=== PATIENT | male | born 1950 | race Caucasian/White ===

== ENCOUNTER 2021-11-15 16:03 | Inpatient (IN) | payer OTHER, MEDICAID, SELFPAY ==
[~2021-11-15] VITALS: Ht 185.4 cm; Wt 118.4 kg
[~2021-11-15 16:03] MED LIST: ALBU2.5V7 INH; ASCO500T20 PO; DOCU-156 PO; EPOE40007 SUBCUT; FURO-150 PO; INSU100V9 SUBCUT; IPRA0.2S53 INH; KEPI500 IV; LEVE1000 PO; LIP40 PO; Lactulose GT; MERO500V23 IV; METF-518 PO; MIDO5TAB4 GT; MULT-976 PO; MULT400T13 GT; ONDA4VIA52 IVP; PROI40 IVP; RISP2TAB5 PO; SAW/1TAB2 PO; VITD2000 PO
[2021-11-15 16:17] VITALS: BP_SYST 130
[2021-11-15] MEDS ORDERED: NUT.237L67 GT (16:29)
[2021-11-15] MEDS ORDERED: OMEP-268 GT (16:29)
[2021-11-15] MEDS ORDERED: RISP2TAB86 GT (16:29)
[2021-11-15] MEDS ORDERED: INSU100V9 SQ (16:29)
[2021-11-15] MEDS ORDERED: LEVE1000 GT (16:29)
[2021-11-15] MEDS ORDERED: MIDO10TA GT (16:29)
[2021-11-15] MEDS ORDERED: ATOR40TA68 GT (16:29)
[2021-11-15] MEDS ORDERED: CHOL2000 GT (16:29)
[2021-11-15] MEDS ORDERED: HEPA500015 SQ (16:29)
[2021-11-15 16:55] LABS: EOSINOPHILS # (AUTO) 0.4 K/uL (0.0-0.4); EOSINOPHILS % (AUTO) 5.8 % (0.0-4.0); HEMATOCRIT 23.7 % (36-54); RED BLOOD CELL COUNT(AUTO) 2.57 MIL/uL (4.2-6.2)
[2021-11-15 17:00] LABS: BASOPHILS % (AUTO) 0.6 % (0.0-2.0); LYMPHOCYTES # (AUTO) 0.8 K/uL (1.0-5.5); MEAN CORPUSCULAR HEMOGLOBIN 30 pg (27-31); MEAN CORPUSCULAR HGB CONC 33 % (32-36); MEAN CORPUSCULAR VOLUME 92 fL (79.0-98.0); MONOCYTES # (AUTO) 0.9 K/uL (0.0-1.0); MONOCYTES % (AUTO) 13.2 % (1.7-9.3); NEUTROPHILS # (AUTO) 4.6 K/uL (1.8-7.7); NEUTROPHILS % (AUTO) 68.4 % (40.0-70.0); PLATELET COUNT (AUTO) 161 K/uL (130-430); RED CELL DISTRIBUTION WIDTH 17.1 % (9.0-15.0); WHITE BLOOD COUNT (AUTO) 6.8 K/uL (4.8-10.8)
[2021-11-15 17:01] LABS: HEMOGLOBIN 7.8 g/dL (14.0-18.0)
[2021-11-15 17:19] LABS: POTASSIUM 2.4 mmol/L (3.5-5.1)
[2021-11-15 17:20] LABS: CALCIUM 9.3 mg/dL (8.4-11.0); CREATININE 1.31 mg/dL (0.55-1.30); TOTAL BILIRUBIN 0.3 mg/dL (0.0-1.0)
[2021-11-15 17:21] LABS: ALBUMIN 1.7 g/dL (3.4-4.8)
[2021-11-15 20:10] VITALS: BP_SYST 129
[2021-11-16 00:30] VITALS: BP_SYST 102
[2021-11-16] MEDS ORDERED: POTASSIUM CHLORIDE 20 MEQ/PKT PACKET GT ONE (01:30)
[2021-11-16] MEDS: IPRATROPIUM BROM 0.5 MG/2.5 ML VIAL.NEB (ATROVENT) INH SCH ×6 (03:44→23:23)
[2021-11-16] MEDS: ALBUTEROL SULFATE 0.083% 2.5 MG/3 ML VIAL.NEB INH SCH ×6 (03:44→23:23)
[2021-11-16] MEDS: INSULIN REGULAR, HUMAN 100 UNITS/ML, 10 ML VIAL (humuLIN R) SUBCUT PRN ×3 (06:29→16:58)
[2021-11-16] MEDS ORDERED: D5W 1,000 ML IV PRN (07:30)
[2021-11-16] MEDS ORDERED: DEXTROSE 50%-WATER 50 ML DISP.SYRIN IVP PRN (07:30)
[2021-11-16] MEDS ORDERED: GLUCOSE (DEXTROSE) ORAL GEL -Adults PO PRN (07:30)
[2021-11-16 08:15] VITALS: BP_SYST 100
[2021-11-16] MEDS: DOCUSATE SODIUM 100 MG CAPSULE PO SCH (09:00)
[2021-11-16] MEDS: LACTULOSE 20 GM/30 ML UDC GT SCH ×3 (09:00→21:57)
[2021-11-16] MEDS: MIDODRINE HCL 5 MG TABLET (PROAMATINE) GT SCH ×3 (09:32→21:57)
[2021-11-16] MEDS: CHOLECALCIFEROL (VITAMIN D3) 2,000 UNIT TABLET PO SCH (09:32)
[2021-11-16] MEDS: MULTIVITAMINS TAB 1 TABLET PO SCH (09:32)
[2021-11-16] MEDS: ASCORBIC ACID 500 MG TABLET PO SCH ×2 (09:32→21:58)
[2021-11-16] MEDS: PANTOPRAZOLE SODIUM 40 MG/VIAL (PROTONIX) IVP SCH (09:33)
[2021-11-16] MEDS: levETIRAcetam 1,000 MG IV BAG 100 ML IV SCH ×2 (10:23→21:57)
[2021-11-16 11:09] VITALS: BP_SYST 99
[2021-11-16 15:59] VITALS: BP_SYST 95
[2021-11-16] MEDS: EPOETIN ALFA-EPBX 4,000 UNITS/ML VIAL SUBCUT SCH (16:42)
[2021-11-16] MEDS: ATORVASTATIN 20 MG TABLET GT SCH (17:02)
[2021-11-16] MEDS: INSULIN GLARGINE 100 UNITS/ML 10 ML VIAL SUBCUT SCH (22:02)
[2021-11-17 00:21] VITALS: BP_SYST 97
[2021-11-17] MEDS: IPRATROPIUM BROM 0.5 MG/2.5 ML VIAL.NEB (ATROVENT) INH SCH (03:31)
[2021-11-17] MEDS: ALBUTEROL SULFATE 0.083% 2.5 MG/3 ML VIAL.NEB INH SCH (03:31)
[2021-11-17 06:48] LABS: BASOPHILS % (AUTO) 0.5 % (0.0-2.0); EOSINOPHILS # (AUTO) 0.2 K/uL (0.0-0.4); EOSINOPHILS % (AUTO) 3.2 % (0.0-4.0); HEMATOCRIT 23.6 % (36-54); HEMOGLOBIN 7.8 g/dL (14.0-18.0); LYMPHOCYTES # (AUTO) 1.4 K/uL (1.0-5.5); LYMPHOCYTES % (AUTO) 19.5 % (20.5-51.5); MEAN CORPUSCULAR HEMOGLOBIN 31 pg (27-31); MEAN CORPUSCULAR HGB CONC 33 % (32-36); MEAN CORPUSCULAR VOLUME 93 fL (79.0-98.0); MONOCYTES % (AUTO) 13.9 % (1.7-9.3); NEUTROPHILS # (AUTO) 4.6 K/uL (1.8-7.7); NEUTROPHILS % (AUTO) 62.9 % (40.0-70.0); PLATELET COUNT (AUTO) 167 K/uL (130-430); RED BLOOD CELL COUNT(AUTO) 2.53 MIL/uL (4.2-6.2); RED CELL DISTRIBUTION WIDTH 16.9 % (9.0-15.0); WHITE BLOOD COUNT (AUTO) 7.3 K/uL (4.8-10.8)
[2021-11-17 07:16] LABS: CALCIUM 9.4 mg/dL (8.4-11.0); CREATININE 1.53 mg/dL (0.55-1.30); PHOSPHORUS 2.6 mg/dL (2.7-4.5); POTASSIUM 3.3 mmol/L (3.5-5.1)
[2021-11-17] MEDS: PANTOPRAZOLE SODIUM 40 MG/VIAL (PROTONIX) IVP SCH (10:01)
[2021-11-17] MEDS: DOCUSATE SODIUM 100 MG CAPSULE PO SCH (10:01)
[2021-11-17] MEDS: LACTULOSE 20 GM/30 ML UDC GT SCH ×3 (10:01→21:59)
[2021-11-17] MEDS: CHOLECALCIFEROL (VITAMIN D3) 2,000 UNIT TABLET PO SCH (10:02)
[2021-11-17] MEDS: MULTIVITAMINS TAB 1 TABLET PO SCH (10:02)
[2021-11-17] MEDS: ASCORBIC ACID 500 MG TABLET PO SCH ×2 (10:02→21:58)
[2021-11-17] MEDS: MIDODRINE HCL 5 MG TABLET (PROAMATINE) GT SCH ×3 (10:03→21:59)
[2021-11-17] MEDS: levETIRAcetam 1,000 MG IV BAG 100 ML IV SCH ×2 (10:05→22:00)
[2021-11-17 10:15] VITALS: BP_SYST 99
[2021-11-17 11:37] VITALS: BP_SYST 101
[2021-11-17] MEDS ORDERED: K PHOS 15 MM in NS 250 ML IV ONE (12:00)
[2021-11-17 15:26] VITALS: BP_SYST 95
[2021-11-17] MEDS: ATORVASTATIN 20 MG TABLET GT SCH (15:54)
[2021-11-17 16:37] VITALS: BP_SYST 99
[2021-11-17 20:00] VITALS: BP_SYST 101
[2021-11-17] MEDS: INSULIN GLARGINE 100 UNITS/ML 10 ML VIAL SUBCUT SCH (21:00)
[2021-11-18 00:22] VITALS: BP_SYST 117
[2021-11-18 07:14] LABS: CALCIUM 9.8 mg/dL (8.4-11.0); CREATININE 1.9 mg/dL (0.55-1.30); PHOSPHORUS 4.2 mg/dL (2.7-4.5); POTASSIUM 3.8 mmol/L (3.5-5.1)
[2021-11-18 07:16] LABS: BASOPHILS % (AUTO) 0.3 % (0.0-2.0); EOSINOPHILS # (AUTO) 0.3 K/uL (0.0-0.4); HEMATOCRIT 23.1 % (36-54); HEMOGLOBIN 7.7 g/dL (14.0-18.0); LYMPHOCYTES # (AUTO) 1.4 K/uL (1.0-5.5); LYMPHOCYTES % (AUTO) 18.8 % (20.5-51.5); MEAN CORPUSCULAR HEMOGLOBIN 31 pg (27-31); MEAN CORPUSCULAR HGB CONC 33 % (32-36); MEAN CORPUSCULAR VOLUME 93 fL (79.0-98.0); MONOCYTES # (AUTO) 1.1 K/uL (0.0-1.0); MONOCYTES % (AUTO) 14.1 % (1.7-9.3); NEUTROPHILS # (AUTO) 4.7 K/uL (1.8-7.7); NEUTROPHILS % (AUTO) 62.8 % (40.0-70.0); PLATELET COUNT (AUTO) 180 K/uL (130-430); RED BLOOD CELL COUNT(AUTO) 2.47 MIL/uL (4.2-6.2); RED CELL DISTRIBUTION WIDTH 17.7 % (9.0-15.0); WHITE BLOOD COUNT (AUTO) 7.5 K/uL (4.8-10.8)
[2021-11-18] MEDS: DOCUSATE SODIUM 100 MG CAPSULE PO SCH (08:53)
[2021-11-18] MEDS: LACTULOSE 20 GM/30 ML UDC GT SCH ×3 (08:53→20:49)
[2021-11-18] MEDS: ASCORBIC ACID 500 MG TABLET PO SCH ×2 (08:54→20:50)
[2021-11-18] MEDS: PANTOPRAZOLE SODIUM 40 MG/VIAL (PROTONIX) IVP SCH (08:54)
[2021-11-18] MEDS: CHOLECALCIFEROL (VITAMIN D3) 2,000 UNIT TABLET PO SCH (08:54)
[2021-11-18] MEDS: MULTIVITAMINS TAB 1 TABLET PO SCH (08:54)
[2021-11-18] MEDS: MIDODRINE HCL 5 MG TABLET (PROAMATINE) GT SCH ×3 (08:54→20:50)
[2021-11-18] MEDS: levETIRAcetam 1,000 MG IV BAG 100 ML IV SCH ×2 (09:00→20:50)
[2021-11-18] MEDS ORDERED: ALBUMIN HUMAN 25% 200 ML IV ONE (10:00)
[2021-11-18 12:00] VITALS: BP_SYST 111
[2021-11-18 15:33] VITALS: BP_SYST 94
[2021-11-18] MEDS: EPOETIN ALFA-EPBX 4,000 UNITS/ML VIAL SUBCUT SCH (16:38)
[2021-11-18] MEDS: INSULIN REGULAR, HUMAN 100 UNITS/ML, 10 ML VIAL (humuLIN R) SUBCUT PRN (16:44)
[2021-11-18] MEDS ORDERED: FUROSEMIDE 20 MG/2 ML VIAL IVP SCH (17:30)
[2021-11-18] MEDS: ATORVASTATIN 20 MG TABLET GT SCH (17:49)
[2021-11-18] MEDS ORDERED: NS 250 ML IV ONE (18:00)
[2021-11-18] MEDS: ALBUTEROL SULFATE 0.083% 2.5 MG/3 ML VIAL.NEB INH SCH ×2 (19:00→23:00)
[2021-11-18] MEDS: IPRATROPIUM BROM 0.5 MG/2.5 ML VIAL.NEB (ATROVENT) INH SCH ×2 (19:00→23:00)
[2021-11-18 20:36] VITALS: BP_SYST 94
[2021-11-18] MEDS: INSULIN GLARGINE 100 UNITS/ML 10 ML VIAL SUBCUT SCH (20:55)
[2021-11-18 20:59] VITALS: BP_SYST 100
[2021-11-18 21:42] VITALS: BP_SYST 100
[2021-11-19] VITALS (7 sets, daily range): BP systolic 98–105
[2021-11-19] MEDS: IPRATROPIUM BROM 0.5 MG/2.5 ML VIAL.NEB (ATROVENT) INH SCH ×6 (03:00→23:00)
[2021-11-19] MEDS: ALBUTEROL SULFATE 0.083% 2.5 MG/3 ML VIAL.NEB INH SCH ×6 (03:00→23:00)
[2021-11-19 07:27] LABS: BASOPHILS % (AUTO) 0.4 % (0.0-2.0); EOSINOPHILS # (AUTO) 0.6 K/uL (0.0-0.4); EOSINOPHILS % (AUTO) 7.5 % (0.0-4.0); HEMATOCRIT 24.7 % (36-54); HEMOGLOBIN 8.1 g/dL (14.0-18.0); LYMPHOCYTES # (AUTO) 1.4 K/uL (1.0-5.5); LYMPHOCYTES % (AUTO) 17.3 % (20.5-51.5); MEAN CORPUSCULAR HEMOGLOBIN 31 pg (27-31); MEAN CORPUSCULAR HGB CONC 33 % (32-36); MEAN CORPUSCULAR VOLUME 94 fL (79.0-98.0); MONOCYTES # (AUTO) 1.1 K/uL (0.0-1.0); MONOCYTES % (AUTO) 14.4 % (1.7-9.3); NEUTROPHILS # (AUTO) 4.7 K/uL (1.8-7.7); NEUTROPHILS % (AUTO) 60.4 % (40.0-70.0); PLATELET COUNT (AUTO) 176 K/uL (130-430); RED BLOOD CELL COUNT(AUTO) 2.63 MIL/uL (4.2-6.2); RED CELL DISTRIBUTION WIDTH 17.1 % (9.0-15.0); WHITE BLOOD COUNT (AUTO) 7.9 K/uL (4.8-10.8)
[2021-11-19 07:55] LABS: CALCIUM 9.7 mg/dL (8.4-11.0); CREATININE 1.94 mg/dL (0.55-1.30); PHOSPHORUS 4.7 mg/dL (2.7-4.5)
[2021-11-19] MEDS: LACTULOSE 20 GM/30 ML UDC GT SCH ×3 (10:06→21:27)
[2021-11-19] MEDS: PANTOPRAZOLE SODIUM 40 MG/VIAL (PROTONIX) IVP SCH (10:06)
[2021-11-19] MEDS: MIDODRINE HCL 5 MG TABLET (PROAMATINE) GT SCH ×3 (10:07→21:27)
[2021-11-19] MEDS: MULTIVITAMINS TAB 1 TABLET PO SCH (10:07)
[2021-11-19] MEDS: DOCUSATE SODIUM 100 MG CAPSULE PO SCH (10:07)
[2021-11-19] MEDS: CHOLECALCIFEROL (VITAMIN D3) 2,000 UNIT TABLET PO SCH (10:07)
[2021-11-19] MEDS: ASCORBIC ACID 500 MG TABLET PO SCH ×2 (10:07→21:28)
[2021-11-19] MEDS: levETIRAcetam 1,000 MG IV BAG 100 ML IV SCH ×2 (10:08→21:28)
[2021-11-19] MEDS: INSULIN REGULAR, HUMAN 100 UNITS/ML, 10 ML VIAL (humuLIN R) SUBCUT PRN (12:55)
[2021-11-19] MEDS: ATORVASTATIN 20 MG TABLET GT SCH (18:04)
[2021-11-19] MEDS: INSULIN GLARGINE 100 UNITS/ML 10 ML VIAL SUBCUT SCH (21:30)
[2021-11-20] VITALS (7 sets, daily range): BP systolic 104–118
[2021-11-20] MEDS: ALBUTEROL SULFATE 0.083% 2.5 MG/3 ML VIAL.NEB INH SCH ×6 (03:00→23:00)
[2021-11-20] MEDS: IPRATROPIUM BROM 0.5 MG/2.5 ML VIAL.NEB (ATROVENT) INH SCH ×6 (03:00→23:00)
[2021-11-20 07:10] LABS: BASOPHILS % (AUTO) 0.5 % (0.0-2.0); EOSINOPHILS # (AUTO) 0.9 K/uL (0.0-0.4); EOSINOPHILS % (AUTO) 10.5 % (0.0-4.0); HEMATOCRIT 24.7 % (36-54); HEMOGLOBIN 8.3 g/dL (14.0-18.0); LYMPHOCYTES # (AUTO) 1.4 K/uL (1.0-5.5); LYMPHOCYTES % (AUTO) 17.3 % (20.5-51.5); MEAN CORPUSCULAR HEMOGLOBIN 32 pg (27-31); MEAN CORPUSCULAR HGB CONC 34 % (32-36); MEAN CORPUSCULAR VOLUME 94 fL (79.0-98.0); MONOCYTES # (AUTO) 1.1 K/uL (0.0-1.0); MONOCYTES % (AUTO) 13.3 % (1.7-9.3); NEUTROPHILS # (AUTO) 4.8 K/uL (1.8-7.7); NEUTROPHILS % (AUTO) 58.4 % (40.0-70.0); PLATELET COUNT (AUTO) 210 K/uL (130-430); RED BLOOD CELL COUNT(AUTO) 2.61 MIL/uL (4.2-6.2); RED CELL DISTRIBUTION WIDTH 17.6 % (9.0-15.0); WHITE BLOOD COUNT (AUTO) 8.3 K/uL (4.8-10.8)
[2021-11-20 07:34] LABS: ALBUMIN 2.4 g/dL (3.4-4.8); C-REACTIVE PROTEIN QUANT 9.1 mg/dL (0-0.5); CREATININE 2.27 mg/dL (0.55-1.30); PHOSPHORUS 5.2 mg/dL (2.7-4.5); POTASSIUM 4.1 mmol/L (3.5-5.1); TOTAL BILIRUBIN 0.5 mg/dL (0.0-1.0)
[2021-11-20] MEDS: LACTULOSE 20 GM/30 ML UDC GT SCH ×3 (08:40→20:32)
[2021-11-20] MEDS: DOCUSATE SODIUM 100 MG CAPSULE PO SCH (08:40)
[2021-11-20] MEDS: PANTOPRAZOLE SODIUM 40 MG/VIAL (PROTONIX) IVP SCH (08:41)
[2021-11-20] MEDS: MULTIVITAMINS TAB 1 TABLET PO SCH (08:41)
[2021-11-20] MEDS: MIDODRINE HCL 5 MG TABLET (PROAMATINE) GT SCH ×3 (08:41→20:32)
[2021-11-20] MEDS: ASCORBIC ACID 500 MG TABLET PO SCH ×2 (08:41→20:32)
[2021-11-20] MEDS: CHOLECALCIFEROL (VITAMIN D3) 2,000 UNIT TABLET PO SCH (08:41)
[2021-11-20] MEDS: levETIRAcetam 1,000 MG IV BAG 100 ML IV SCH ×2 (08:42→20:32)
[2021-11-20 09:12] LABS: ERYTHROCYTE SEDIMENTATION RATE 129 MM/HR (0-15)
[2021-11-20] MEDS ORDERED: HEPARIN SODIUM,PORCINE 5,000 UNITS/ML VIAL SUBCUT ONE (11:15)
[2021-11-20] MEDS ORDERED: AMMONIUM LACTATE 226 GM LOTION TP ONE (17:30)
[2021-11-20] MEDS: ATORVASTATIN 20 MG TABLET GT SCH (18:00)
[2021-11-20] MEDS: EPOETIN ALFA-EPBX 4,000 UNITS/ML VIAL SUBCUT SCH (18:05)
[2021-11-20] MEDS: INSULIN REGULAR, HUMAN 100 UNITS/ML, 10 ML VIAL (humuLIN R) SUBCUT PRN (18:08)
[2021-11-20] MEDS: HEPARIN SODIUM,PORCINE 5,000 UNITS/ML VIAL SUBCUT SCH (20:34)
[2021-11-20] MEDS: AMMONIUM LACTATE 226 GM LOTION TP SCH (20:34)
[2021-11-20] MEDS: FUROSEMIDE 40 MG/4 ML VIAL IVP SCH (20:39)
[2021-11-20] MEDS: INSULIN GLARGINE 100 UNITS/ML 10 ML VIAL SUBCUT SCH (20:44)
[2021-11-21] VITALS: BP_SYST 96
[2021-11-21] MEDS: INSULIN REGULAR, HUMAN 100 UNITS/ML, 10 ML VIAL (humuLIN R) SUBCUT PRN (00:33)
[2021-11-21 06:48] LABS: BASOPHILS % (AUTO) 0.5 % (0.0-2.0); EOSINOPHILS # (AUTO) 0.5 K/uL (0.0-0.4); HEMATOCRIT 24.7 % (36-54); HEMOGLOBIN 7.9 g/dL (14.0-18.0); LYMPHOCYTES # (AUTO) 1.2 K/uL (1.0-5.5); LYMPHOCYTES % (AUTO) 15.7 % (20.5-51.5); MEAN CORPUSCULAR HEMOGLOBIN 31 pg (27-31); MEAN CORPUSCULAR HGB CONC 32 % (32-36); MEAN CORPUSCULAR VOLUME 95 fL (79.0-98.0); MONOCYTES % (AUTO) 13.6 % (1.7-9.3); NEUTROPHILS # (AUTO) 4.9 K/uL (1.8-7.7); NEUTROPHILS % (AUTO) 63.2 % (40.0-70.0); PLATELET COUNT (AUTO) 212 K/uL (130-430); RED BLOOD CELL COUNT(AUTO) 2.58 MIL/uL (4.2-6.2); RED CELL DISTRIBUTION WIDTH 17.5 % (9.0-15.0); WHITE BLOOD COUNT (AUTO) 7.7 K/uL (4.8-10.8)
[2021-11-21 07:06] LABS: CALCIUM 10.8 mg/dL (8.4-11.0); CREATININE 2.45 mg/dL (0.55-1.30); PHOSPHORUS 5.2 mg/dL (2.7-4.5); POTASSIUM 3.8 mmol/L (3.5-5.1)
[2021-11-21 07:45] VITALS: BP_SYST 112
[2021-11-21] MEDS: IPRATROPIUM BROM 0.5 MG/2.5 ML VIAL.NEB (ATROVENT) INH SCH ×4 (07:45→23:00)
[2021-11-21] MEDS: ALBUTEROL SULFATE 0.083% 2.5 MG/3 ML VIAL.NEB INH SCH ×4 (07:46→23:00)
[2021-11-21] MEDS: DOCUSATE SODIUM 100 MG CAPSULE PO SCH (08:43)
[2021-11-21] MEDS: LACTULOSE 20 GM/30 ML UDC GT SCH ×3 (08:43→20:57)
[2021-11-21] MEDS: FUROSEMIDE 40 MG/4 ML VIAL IVP SCH ×2 (09:00→20:57)
[2021-11-21] MEDS: levETIRAcetam 1,000 MG IV BAG 100 ML IV SCH ×2 (09:00→20:42)
[2021-11-21] MEDS: PANTOPRAZOLE SODIUM 40 MG/VIAL (PROTONIX) IVP SCH (09:03)
[2021-11-21] MEDS: ASCORBIC ACID 500 MG TABLET PO SCH ×2 (09:04→20:54)
[2021-11-21] MEDS: CHOLECALCIFEROL (VITAMIN D3) 2,000 UNIT TABLET PO SCH (09:04)
[2021-11-21] MEDS: MIDODRINE HCL 5 MG TABLET (PROAMATINE) GT SCH ×3 (09:04→20:54)
[2021-11-21] MEDS: MULTIVITAMINS TAB 1 TABLET PO SCH (09:04)
[2021-11-21] MEDS: AMMONIUM LACTATE 226 GM LOTION TP SCH ×2 (09:04→21:01)
[2021-11-21] MEDS: BALSAM PERU/CASTOR OIL 56.7 GM OINT...G. TP SCH (09:05)
[2021-11-21] MEDS: HEPARIN SODIUM,PORCINE 5,000 UNITS/ML VIAL SUBCUT SCH ×2 (09:09→20:56)
[2021-11-21] MEDS ORDERED: ALBUMIN HUMAN 25% 100 ML IV ONE (10:00)
[2021-11-21 12:31] VITALS: BP_SYST 112
[2021-11-21 16:46] VITALS: BP_SYST 94
[2021-11-21] MEDS: ATORVASTATIN 20 MG TABLET GT SCH (17:17)
[2021-11-21] MEDS: INSULIN GLARGINE 100 UNITS/ML 10 ML VIAL SUBCUT SCH (21:00)
[2021-11-21 21:16] VITALS: BP_SYST 93
[2021-11-21 23:26] VITALS: BP_SYST 93
[2021-11-22] VITALS (8 sets, daily range): BP systolic 89–106
[2021-11-22] MEDS ORDERED: NACL 0.9% 1,000 ML IV ONE (01:15)
[2021-11-22] MEDS: IPRATROPIUM BROM 0.5 MG/2.5 ML VIAL.NEB (ATROVENT) INH SCH ×6 (03:00→23:24)
[2021-11-22] MEDS: ALBUTEROL SULFATE 0.083% 2.5 MG/3 ML VIAL.NEB INH SCH ×6 (03:00→23:24)
[2021-11-22 06:43] LABS: CALCIUM 10.8 mg/dL (8.4-11.0); CREATININE 2.51 mg/dL (0.55-1.30); POTASSIUM 3.9 mmol/L (3.5-5.1)
[2021-11-22 07:04] LABS: BASOPHILS % (AUTO) 0.5 % (0.0-2.0); EOSINOPHILS # (AUTO) 0.6 K/uL (0.0-0.4); HEMATOCRIT 24.2 % (36-54); HEMOGLOBIN 7.8 g/dL (14.0-18.0); LYMPHOCYTES # (AUTO) 1.1 K/uL (1.0-5.5); LYMPHOCYTES % (AUTO) 14.4 % (20.5-51.5); MEAN CORPUSCULAR HEMOGLOBIN 31 pg (27-31); MEAN CORPUSCULAR HGB CONC 32 % (32-36); MEAN CORPUSCULAR VOLUME 95 fL (79.0-98.0); MONOCYTES % (AUTO) 12.3 % (1.7-9.3); NEUTROPHILS # (AUTO) 5.2 K/uL (1.8-7.7); NEUTROPHILS % (AUTO) 65.8 % (40.0-70.0); PLATELET COUNT (AUTO) 216 K/uL (130-430); RED BLOOD CELL COUNT(AUTO) 2.53 MIL/uL (4.2-6.2); RED CELL DISTRIBUTION WIDTH 17.8 % (9.0-15.0)
[2021-11-22] MEDS: LACTULOSE 20 GM/30 ML UDC GT SCH ×3 (08:10→21:18)
[2021-11-22] MEDS: DOCUSATE SODIUM 100 MG CAPSULE PO SCH (08:11)
[2021-11-22] MEDS: levETIRAcetam 1,000 MG IV BAG 100 ML IV SCH ×2 (08:25→21:19)
[2021-11-22] MEDS: FUROSEMIDE 40 MG/4 ML VIAL IVP SCH ×2 (08:26→21:18)
[2021-11-22] MEDS: PANTOPRAZOLE SODIUM 40 MG/VIAL (PROTONIX) IVP SCH (08:26)
[2021-11-22] MEDS: MULTIVITAMINS TAB 1 TABLET PO SCH (08:27)
[2021-11-22] MEDS: ASCORBIC ACID 500 MG TABLET PO SCH ×2 (08:27→21:18)
[2021-11-22] MEDS: CHOLECALCIFEROL (VITAMIN D3) 2,000 UNIT TABLET PO SCH (08:27)
[2021-11-22] MEDS: MIDODRINE HCL 5 MG TABLET (PROAMATINE) GT SCH ×3 (08:27→21:19)
[2021-11-22] MEDS: HEPARIN SODIUM,PORCINE 5,000 UNITS/ML VIAL SUBCUT SCH ×2 (08:28→21:22)
[2021-11-22] MEDS: AMMONIUM LACTATE 226 GM LOTION TP SCH ×2 (09:00→21:23)
[2021-11-22] MEDS: BALSAM PERU/CASTOR OIL 56.7 GM OINT...G. TP SCH (09:00)
[2021-11-22] MEDS: ATORVASTATIN 20 MG TABLET GT SCH (17:32)
[2021-11-22 21:17] LABS: HEMOGLOBIN 7.6 g/dL (14.0-18.0); MEAN CORPUSCULAR HEMOGLOBIN 31 pg (27-31); MEAN CORPUSCULAR HGB CONC 33 % (32-36); MEAN CORPUSCULAR VOLUME 94 fL (79.0-98.0); PLATELET COUNT (AUTO) 204 K/uL (130-430); RED BLOOD CELL COUNT(AUTO) 2.44 MIL/uL (4.2-6.2); RED CELL DISTRIBUTION WIDTH 17.1 % (9.0-15.0); WHITE BLOOD COUNT (AUTO) 9.7 K/uL (4.8-10.8)
[2021-11-22] MEDS: INSULIN GLARGINE 100 UNITS/ML 10 ML VIAL SUBCUT SCH (21:23)
[2021-11-22 21:39] LABS: ALBUMIN 2.5 g/dL (3.4-4.8); CALCIUM 10.3 mg/dL (8.4-11.0); CREATININE 1.64 mg/dL (0.55-1.30); POTASSIUM 3.2 mmol/L (3.5-5.1); TOTAL BILIRUBIN 0.3 mg/dL (0.0-1.0)
[2021-11-22 22:48] LABS: BAND % (MANUAL) 3 % (0-6); BASOPHILS % (MANUAL) 0 % (0-2); EOSINOPHILS % (MANUAL) 10 % (0-7); LYMPHOCYTES % (MANUAL) 11 % (20-46); MONOCYTES % (MANUAL) 16 % (0-11)
[2021-11-23] MEDS ORDERED: POTASSIUM CHLORIDE 20 MEQ/PKT PACKET GT ONE (00:30)
[2021-11-23 01:31] VITALS: BP_SYST 104
[2021-11-23] MEDS: ALBUTEROL SULFATE 0.083% 2.5 MG/3 ML VIAL.NEB INH SCH ×6 (04:00→23:16)
[2021-11-23] MEDS: IPRATROPIUM BROM 0.5 MG/2.5 ML VIAL.NEB (ATROVENT) INH SCH ×6 (04:00→23:16)
[2021-11-23 06:07] LABS: BASOPHILS % (AUTO) 0.4 % (0.0-2.0); EOSINOPHILS # (AUTO) 0.8 K/uL (0.0-0.4); EOSINOPHILS % (AUTO) 9.2 % (0.0-4.0); HEMATOCRIT 23.6 % (36-54); HEMOGLOBIN 7.7 g/dL (14.0-18.0); LYMPHOCYTES # (AUTO) 1.1 K/uL (1.0-5.5); LYMPHOCYTES % (AUTO) 13.3 % (20.5-51.5); MEAN CORPUSCULAR HEMOGLOBIN 31 pg (27-31); MEAN CORPUSCULAR HGB CONC 33 % (32-36); MEAN CORPUSCULAR VOLUME 94 fL (79.0-98.0); MONOCYTES # (AUTO) 1.1 K/uL (0.0-1.0); MONOCYTES % (AUTO) 13.3 % (1.7-9.3); NEUTROPHILS # (AUTO) 5.3 K/uL (1.8-7.7); NEUTROPHILS % (AUTO) 63.8 % (40.0-70.0); PLATELET COUNT (AUTO) 200 K/uL (130-430); RED BLOOD CELL COUNT(AUTO) 2.51 MIL/uL (4.2-6.2); RED CELL DISTRIBUTION WIDTH 17.6 % (9.0-15.0); WHITE BLOOD COUNT (AUTO) 8.3 K/uL (4.8-10.8)
[2021-11-23 07:27] LABS: ALBUMIN 2.3 g/dL (3.4-4.8); CALCIUM 10.4 mg/dL (8.4-11.0); CREATININE 1.86 mg/dL (0.55-1.30); POTASSIUM 4.1 mmol/L (3.5-5.1); TOTAL BILIRUBIN 0.2 mg/dL (0.0-1.0)
[2021-11-23] MEDS: LACTULOSE 20 GM/30 ML UDC GT SCH ×3 (08:54→21:00)
[2021-11-23] MEDS: HEPARIN SODIUM,PORCINE 5,000 UNITS/ML VIAL SUBCUT SCH ×2 (08:55→22:41)
[2021-11-23] MEDS: PANTOPRAZOLE SODIUM 40 MG/VIAL (PROTONIX) IVP SCH (08:56)
[2021-11-23] MEDS: FUROSEMIDE 40 MG/4 ML VIAL IVP SCH ×2 (09:02→22:49)
[2021-11-23] MEDS: MIDODRINE HCL 5 MG TABLET (PROAMATINE) GT SCH ×3 (09:02→22:48)
[2021-11-23] MEDS: CHOLECALCIFEROL (VITAMIN D3) 2,000 UNIT TABLET PO SCH (09:02)
[2021-11-23] MEDS: ASCORBIC ACID 500 MG TABLET PO SCH ×2 (09:02→22:49)
[2021-11-23] MEDS: MULTIVITAMINS TAB 1 TABLET PO SCH (09:02)
[2021-11-23] MEDS: DOCUSATE SODIUM 100 MG CAPSULE PO SCH (09:03)
[2021-11-23] MEDS: AMMONIUM LACTATE 226 GM LOTION TP SCH ×2 (09:12→22:51)
[2021-11-23] MEDS: BALSAM PERU/CASTOR OIL 56.7 GM OINT...G. TP SCH (09:12)
[2021-11-23] MEDS: levETIRAcetam 1,000 MG IV BAG 100 ML IV SCH ×2 (11:31→22:48)
[2021-11-23 12:25] VITALS: BP_SYST 103
[2021-11-23 16:13] VITALS: BP_SYST 106
[2021-11-23] MEDS: ATORVASTATIN 20 MG TABLET GT SCH (18:56)
[2021-11-23] MEDS: EPOETIN ALFA-EPBX 4,000 UNITS/ML VIAL SUBCUT SCH (18:56)
[2021-11-23 22:29] VITALS: BP_SYST 117
[2021-11-23] MEDS: INSULIN GLARGINE 100 UNITS/ML 10 ML VIAL SUBCUT SCH (22:50)
[2021-11-23 23:41] VITALS: BP_SYST 116
[2021-11-24 00:25] VITALS: BP_SYST 116
[2021-11-24] MEDS: IPRATROPIUM BROM 0.5 MG/2.5 ML VIAL.NEB (ATROVENT) INH SCH ×6 (02:20→23:23)
[2021-11-24] MEDS: ALBUTEROL SULFATE 0.083% 2.5 MG/3 ML VIAL.NEB INH SCH ×6 (02:20→23:22)
[2021-11-24 06:49] LABS: CREATININE 2.47 mg/dL (0.55-1.30); PHOSPHORUS 3.7 mg/dL (2.7-4.5); POTASSIUM 3.9 mmol/L (3.5-5.1)
[2021-11-24 07:27] LABS: BASOPHILS % (AUTO) 0.4 % (0.0-2.0); EOSINOPHILS # (AUTO) 0.3 K/uL (0.0-0.4); EOSINOPHILS % (AUTO) 4.8 % (0.0-4.0); HEMATOCRIT 23.5 % (36-54); HEMOGLOBIN 7.7 g/dL (14.0-18.0); LYMPHOCYTES % (AUTO) 13.8 % (20.5-51.5); MEAN CORPUSCULAR HEMOGLOBIN 31 pg (27-31); MEAN CORPUSCULAR HGB CONC 33 % (32-36); MEAN CORPUSCULAR VOLUME 94 fL (79.0-98.0); MONOCYTES # (AUTO) 1.1 K/uL (0.0-1.0); MONOCYTES % (AUTO) 15.1 % (1.7-9.3); NEUTROPHILS # (AUTO) 4.7 K/uL (1.8-7.7); NEUTROPHILS % (AUTO) 65.9 % (40.0-70.0); PLATELET COUNT (AUTO) 212 K/uL (130-430); WHITE BLOOD COUNT (AUTO) 7.1 K/uL (4.8-10.8)
[2021-11-24 08:38] VITALS: BP_SYST 112
[2021-11-24] MEDS: LACTULOSE 20 GM/30 ML UDC GT SCH ×3 (09:00→21:00)
[2021-11-24] MEDS: MULTIVITAMINS TAB 1 TABLET PO SCH (10:56)
[2021-11-24] MEDS: DOCUSATE SODIUM 100 MG CAPSULE PO SCH (10:57)
[2021-11-24] MEDS: CHOLECALCIFEROL (VITAMIN D3) 2,000 UNIT TABLET PO SCH (10:57)
[2021-11-24] MEDS: ASCORBIC ACID 500 MG TABLET PO SCH ×2 (10:57→23:00)
[2021-11-24] MEDS: PANTOPRAZOLE SODIUM 40 MG/VIAL (PROTONIX) IVP SCH (10:58)
[2021-11-24] MEDS: MIDODRINE HCL 5 MG TABLET (PROAMATINE) GT SCH ×3 (10:58→23:00)
[2021-11-24] MEDS: FUROSEMIDE 40 MG/4 ML VIAL IVP SCH ×2 (10:59→21:00)
[2021-11-24] MEDS: AMMONIUM LACTATE 226 GM LOTION TP SCH ×2 (11:00→23:23)
[2021-11-24] MEDS: levETIRAcetam 1,000 MG IV BAG 100 ML IV SCH ×2 (11:02→23:00)
[2021-11-24] MEDS: HEPARIN SODIUM,PORCINE 5,000 UNITS/ML VIAL SUBCUT SCH ×2 (11:02→23:06)
[2021-11-24 12:00] VITALS: BP_SYST 115
[2021-11-24 13:20] VITALS: BP_SYST 102
[2021-11-24] MEDS ORDERED: ALBUMIN HUMAN 25% 100 ML IV ONE (14:00)
[2021-11-24] MEDS ORDERED: HEPARIN SODIUM,PORCINE 5,000 UNITS/ML VIAL IVP ONE (14:00)
[2021-11-24] MEDS ORDERED: HEPARIN SODIUM,PORCINE 5,000 UNITS/ML VIAL MC ONE (14:00)
[2021-11-24 15:28] VITALS: BP_SYST 108
[2021-11-24] MEDS: ATORVASTATIN 20 MG TABLET GT SCH (17:50)
[2021-11-24] MEDS: BALSAM PERU/CASTOR OIL 56.7 GM OINT...G. TP SCH (17:51)
[2021-11-24 20:45] VITALS: BP_SYST 106
[2021-11-24] MEDS: INSULIN GLARGINE 100 UNITS/ML 10 ML VIAL SUBCUT SCH (23:13)
[2021-11-25 01:27] VITALS: BP_SYST 99
[2021-11-25 07:17] LABS: BASOPHILS % (AUTO) 0.5 % (0.0-2.0); EOSINOPHILS # (AUTO) 0.5 K/uL (0.0-0.4); EOSINOPHILS % (AUTO) 6.8 % (0.0-4.0); HEMATOCRIT 24.5 % (36-54); LYMPHOCYTES # (AUTO) 0.9 K/uL (1.0-5.5); LYMPHOCYTES % (AUTO) 12.9 % (20.5-51.5); MEAN CORPUSCULAR HEMOGLOBIN 31 pg (27-31); MEAN CORPUSCULAR HGB CONC 33 % (32-36); MEAN CORPUSCULAR VOLUME 94 fL (79.0-98.0); MONOCYTES % (AUTO) 14.2 % (1.7-9.3); NEUTROPHILS # (AUTO) 4.8 K/uL (1.8-7.7); NEUTROPHILS % (AUTO) 65.6 % (40.0-70.0); PLATELET COUNT (AUTO) 208 K/uL (130-430); RED BLOOD CELL COUNT(AUTO) 2.61 MIL/uL (4.2-6.2); RED CELL DISTRIBUTION WIDTH 17.1 % (9.0-15.0); WHITE BLOOD COUNT (AUTO) 7.3 K/uL (4.8-10.8)
[2021-11-25 07:19] LABS: CALCIUM 11.5 mg/dL (8.4-11.0); CREATININE 2.05 mg/dL (0.55-1.30); PHOSPHORUS 3.5 mg/dL (2.7-4.5); POTASSIUM 3.7 mmol/L (3.5-5.1)
[2021-11-25] MEDS: IPRATROPIUM BROM 0.5 MG/2.5 ML VIAL.NEB (ATROVENT) INH SCH ×5 (07:54→23:15)
[2021-11-25] MEDS: ALBUTEROL SULFATE 0.083% 2.5 MG/3 ML VIAL.NEB INH SCH ×5 (07:54→23:15)
[2021-11-25 08:23] VITALS: BP_SYST 95
[2021-11-25 09:29] LABS: TOTAL IRON BIND. CAPACITY 181 ug/dL (250-450)
[2021-11-25] MEDS: PANTOPRAZOLE SODIUM 40 MG/VIAL (PROTONIX) IVP SCH (10:20)
[2021-11-25] MEDS: HEPARIN SODIUM,PORCINE 5,000 UNITS/ML VIAL SUBCUT SCH ×2 (10:22→22:40)
[2021-11-25] MEDS: MULTIVITAMINS TAB 1 TABLET PO SCH (10:22)
[2021-11-25] MEDS: ASCORBIC ACID 500 MG TABLET PO SCH ×2 (10:22→22:19)
[2021-11-25] MEDS: LACTULOSE 20 GM/30 ML UDC GT SCH ×3 (10:22→21:00)
[2021-11-25] MEDS: DOCUSATE SODIUM 100 MG CAPSULE PO SCH (10:22)
[2021-11-25] MEDS: CHOLECALCIFEROL (VITAMIN D3) 2,000 UNIT TABLET PO SCH (10:22)
[2021-11-25] MEDS: MIDODRINE HCL 5 MG TABLET (PROAMATINE) GT SCH ×3 (10:22→22:18)
[2021-11-25] MEDS: AMMONIUM LACTATE 226 GM LOTION TP SCH ×2 (10:23→22:21)
[2021-11-25] MEDS: BALSAM PERU/CASTOR OIL 56.7 GM OINT...G. TP SCH (10:24)
[2021-11-25] MEDS: levETIRAcetam 1,000 MG IV BAG 100 ML IV SCH ×2 (10:29→22:19)
[2021-11-25 11:23] VITALS: BP_SYST 105
[2021-11-25 15:26] VITALS: BP_SYST 111
[2021-11-25] MEDS: ATORVASTATIN 20 MG TABLET GT SCH (17:37)
[2021-11-25] MEDS: EPOETIN ALFA-EPBX 4,000 UNITS/ML VIAL SUBCUT SCH (17:40)
[2021-11-25 20:00] VITALS: BP_SYST 118
[2021-11-25 20:15] VITALS: BP_SYST 118
[2021-11-25] MEDS: INSULIN GLARGINE 100 UNITS/ML 10 ML VIAL SUBCUT SCH (23:08)
[2021-11-26] VITALS (7 sets, daily range): BP systolic 82–120
[2021-11-26] MEDS: IPRATROPIUM BROM 0.5 MG/2.5 ML VIAL.NEB (ATROVENT) INH SCH ×5 (03:12→19:45)
[2021-11-26] MEDS: ALBUTEROL SULFATE 0.083% 2.5 MG/3 ML VIAL.NEB INH SCH ×5 (03:12→19:44)
[2021-11-26 07:00] LABS: CALCIUM 11.1 mg/dL (8.4-11.0); CREATININE 2.61 mg/dL (0.55-1.30); PHOSPHORUS 3.6 mg/dL (2.7-4.5); POTASSIUM 3.8 mmol/L (3.5-5.1)
[2021-11-26 07:35] LABS: BASOPHILS % (AUTO) 0.4 % (0.0-2.0); EOSINOPHILS # (AUTO) 0.3 K/uL (0.0-0.4); EOSINOPHILS % (AUTO) 3.8 % (0.0-4.0); HEMATOCRIT 22.5 % (36-54); HEMOGLOBIN 7.5 g/dL (14.0-18.0); LYMPHOCYTES # (AUTO) 1.1 K/uL (1.0-5.5); LYMPHOCYTES % (AUTO) 12.1 % (20.5-51.5); MEAN CORPUSCULAR HEMOGLOBIN 31 pg (27-31); MEAN CORPUSCULAR HGB CONC 34 % (32-36); MEAN CORPUSCULAR VOLUME 94 fL (79.0-98.0); MONOCYTES # (AUTO) 1.3 K/uL (0.0-1.0); MONOCYTES % (AUTO) 14.5 % (1.7-9.3); NEUTROPHILS # (AUTO) 6.2 K/uL (1.8-7.7); NEUTROPHILS % (AUTO) 69.2 % (40.0-70.0); PLATELET COUNT (AUTO) 220 K/uL (130-430); RED CELL DISTRIBUTION WIDTH 16.9 % (9.0-15.0); WHITE BLOOD COUNT (AUTO) 8.9 K/uL (4.8-10.8)
[2021-11-26] MEDS: LACTULOSE 20 GM/30 ML UDC GT SCH ×3 (09:30→21:51)
[2021-11-26] MEDS: MIDODRINE HCL 5 MG TABLET (PROAMATINE) GT SCH ×3 (09:31→21:51)
[2021-11-26] MEDS: PANTOPRAZOLE SODIUM 40 MG/VIAL (PROTONIX) IVP SCH (09:31)
[2021-11-26] MEDS: CHOLECALCIFEROL (VITAMIN D3) 2,000 UNIT TABLET PO SCH (09:31)
[2021-11-26] MEDS: levETIRAcetam 1,000 MG IV BAG 100 ML IV SCH ×2 (09:31→21:51)
[2021-11-26] MEDS: ASCORBIC ACID 500 MG TABLET PO SCH ×2 (09:32→21:51)
[2021-11-26] MEDS: FLUDROCORTISONE ACETATE 0.1 MG TABLET( FLORINEF) PO SCH (09:32)
[2021-11-26] MEDS: MULTIVITAMINS TAB 1 TABLET PO SCH (09:32)
[2021-11-26] MEDS: AMMONIUM LACTATE 226 GM LOTION TP SCH ×2 (09:32→21:52)
[2021-11-26] MEDS: DOCUSATE SODIUM 100 MG CAPSULE PO SCH (09:32)
[2021-11-26] MEDS: BALSAM PERU/CASTOR OIL 56.7 GM OINT...G. TP SCH (09:33)
[2021-11-26] MEDS: HEPARIN SODIUM,PORCINE 5,000 UNITS/ML VIAL SUBCUT SCH ×2 (09:39→22:02)
[2021-11-26] MEDS: INSULIN REGULAR, HUMAN 100 UNITS/ML, 10 ML VIAL (humuLIN R) SUBCUT PRN ×2 (12:13→17:03)
[2021-11-26] MEDS: ATORVASTATIN 20 MG TABLET GT SCH (16:51)
[2021-11-26] MEDS: IRON SUCROSE COMPLEX 200 MG in NS 100 ML IV SCH (16:52)
[2021-11-26] MEDS: INSULIN GLARGINE 100 UNITS/ML 10 ML VIAL SUBCUT SCH (23:13)
[2021-11-27] VITALS (7 sets, daily range): BP systolic 99–111
[2021-11-27] MEDS: ALBUTEROL SULFATE 0.083% 2.5 MG/3 ML VIAL.NEB INH SCH ×5 (07:17→22:31)
[2021-11-27] MEDS: IPRATROPIUM BROM 0.5 MG/2.5 ML VIAL.NEB (ATROVENT) INH SCH ×5 (07:17→22:31)
[2021-11-27 07:30] LABS: BASOPHILS % (AUTO) 0.5 % (0.0-2.0); EOSINOPHILS # (AUTO) 0.4 K/uL (0.0-0.4); EOSINOPHILS % (AUTO) 4.3 % (0.0-4.0); HEMATOCRIT 22.6 % (36-54); HEMOGLOBIN 7.6 g/dL (14.0-18.0); LYMPHOCYTES # (AUTO) 1.1 K/uL (1.0-5.5); LYMPHOCYTES % (AUTO) 13.5 % (20.5-51.5); MEAN CORPUSCULAR HEMOGLOBIN 32 pg (27-31); MEAN CORPUSCULAR HGB CONC 34 % (32-36); MEAN CORPUSCULAR VOLUME 93 fL (79.0-98.0); MONOCYTES # (AUTO) 1.4 K/uL (0.0-1.0); MONOCYTES % (AUTO) 17.3 % (1.7-9.3); NEUTROPHILS # (AUTO) 5.3 K/uL (1.8-7.7); NEUTROPHILS % (AUTO) 64.4 % (40.0-70.0); PLATELET COUNT (AUTO) 224 K/uL (130-430); RED BLOOD CELL COUNT(AUTO) 2.42 MIL/uL (4.2-6.2); RED CELL DISTRIBUTION WIDTH 16.9 % (9.0-15.0); WHITE BLOOD COUNT (AUTO) 8.3 K/uL (4.8-10.8)
[2021-11-27 09:31] LABS: ALBUMIN 2.4 g/dL (3.4-4.8); CALCIUM 10.3 mg/dL (8.4-11.0); CREATININE 2.18 mg/dL (0.55-1.30); PHOSPHORUS 2.7 mg/dL (2.7-4.5); POTASSIUM 3.4 mmol/L (3.5-5.1); TOTAL BILIRUBIN 0.2 mg/dL (0.0-1.0)
[2021-11-27] MEDS: LACTULOSE 20 GM/30 ML UDC GT SCH ×3 (10:26→21:36)
[2021-11-27] MEDS: FLUDROCORTISONE ACETATE 0.1 MG TABLET( FLORINEF) PO SCH (10:26)
[2021-11-27] MEDS: CHOLECALCIFEROL (VITAMIN D3) 2,000 UNIT TABLET PO SCH (10:26)
[2021-11-27] MEDS: ASCORBIC ACID 500 MG TABLET PO SCH ×2 (10:26→21:36)
[2021-11-27] MEDS: DOCUSATE SODIUM 100 MG CAPSULE PO SCH (10:27)
[2021-11-27] MEDS: HEPARIN SODIUM,PORCINE 5,000 UNITS/ML VIAL SUBCUT SCH ×2 (10:27→21:38)
[2021-11-27] MEDS: MULTIVITAMINS TAB 1 TABLET PO SCH (10:28)
[2021-11-27] MEDS: PANTOPRAZOLE SODIUM 40 MG/VIAL (PROTONIX) IVP SCH (10:28)
[2021-11-27] MEDS: MIDODRINE HCL 5 MG TABLET (PROAMATINE) GT SCH ×3 (10:28→21:36)
[2021-11-27] MEDS: AMMONIUM LACTATE 226 GM LOTION TP SCH ×2 (10:29→21:37)
[2021-11-27] MEDS: BALSAM PERU/CASTOR OIL 56.7 GM OINT...G. TP SCH (10:29)
[2021-11-27] MEDS: levETIRAcetam 1,000 MG IV BAG 100 ML IV SCH ×2 (10:31→21:37)
[2021-11-27] MEDS: INSULIN REGULAR, HUMAN 100 UNITS/ML, 10 ML VIAL (humuLIN R) SUBCUT PRN ×2 (11:31→16:03)
[2021-11-27] MEDS: EPOETIN ALFA-EPBX 4,000 UNITS/ML VIAL SUBCUT SCH (16:05)
[2021-11-27] MEDS: ATORVASTATIN 20 MG TABLET GT SCH (17:51)
[2021-11-27] MEDS: INSULIN GLARGINE 100 UNITS/ML 10 ML VIAL SUBCUT SCH (23:50)
[2021-11-28] VITALS (7 sets, daily range): BP systolic 93–115
[2021-11-28] MEDS: IPRATROPIUM BROM 0.5 MG/2.5 ML VIAL.NEB (ATROVENT) INH SCH ×6 (03:11→23:21)
[2021-11-28] MEDS: ALBUTEROL SULFATE 0.083% 2.5 MG/3 ML VIAL.NEB INH SCH ×6 (03:11→23:21)
[2021-11-28 06:54] LABS: BASOPHILS % (AUTO) 0.5 % (0.0-2.0); EOSINOPHILS # (AUTO) 0.6 K/uL (0.0-0.4); EOSINOPHILS % (AUTO) 6.1 % (0.0-4.0); HEMATOCRIT 22.4 % (36-54); HEMOGLOBIN 7.5 g/dL (14.0-18.0); LYMPHOCYTES # (AUTO) 1.1 K/uL (1.0-5.5); LYMPHOCYTES % (AUTO) 11.1 % (20.5-51.5); MEAN CORPUSCULAR HEMOGLOBIN 31 pg (27-31); MEAN CORPUSCULAR HGB CONC 34 % (32-36); MEAN CORPUSCULAR VOLUME 93 fL (79.0-98.0); MONOCYTES # (AUTO) 1.3 K/uL (0.0-1.0); NEUTROPHILS # (AUTO) 6.5 K/uL (1.8-7.7); NEUTROPHILS % (AUTO) 68.3 % (40.0-70.0); PLATELET COUNT (AUTO) 227 K/uL (130-430); RED CELL DISTRIBUTION WIDTH 16.7 % (9.0-15.0); WHITE BLOOD COUNT (AUTO) 9.5 K/uL (4.8-10.8)
[2021-11-28 07:17] LABS: CREATININE 2.76 mg/dL (0.55-1.30); PHOSPHORUS 3.4 mg/dL (2.7-4.5); POTASSIUM 3.5 mmol/L (3.5-5.1)
[2021-11-28] MEDS: FLUDROCORTISONE ACETATE 0.1 MG TABLET( FLORINEF) PO SCH (08:21)
[2021-11-28] MEDS: DOCUSATE SODIUM 100 MG CAPSULE PO SCH (08:21)
[2021-11-28] MEDS: MULTIVITAMINS TAB 1 TABLET PO SCH (08:21)
[2021-11-28] MEDS: LACTULOSE 20 GM/30 ML UDC GT SCH ×3 (08:21→21:33)
[2021-11-28] MEDS: CHOLECALCIFEROL (VITAMIN D3) 2,000 UNIT TABLET PO SCH (08:21)
[2021-11-28] MEDS: MIDODRINE HCL 5 MG TABLET (PROAMATINE) GT SCH ×3 (08:22→21:34)
[2021-11-28] MEDS: PANTOPRAZOLE SODIUM 40 MG/VIAL (PROTONIX) IVP SCH (08:22)
[2021-11-28] MEDS: levETIRAcetam 1,000 MG IV BAG 100 ML IV SCH ×2 (08:22→21:34)
[2021-11-28] MEDS: ASCORBIC ACID 500 MG TABLET PO SCH ×2 (08:22→21:34)
[2021-11-28] MEDS: BALSAM PERU/CASTOR OIL 56.7 GM OINT...G. TP SCH (08:23)
[2021-11-28] MEDS: AMMONIUM LACTATE 226 GM LOTION TP SCH ×2 (08:23→21:47)
[2021-11-28] MEDS: HEPARIN SODIUM,PORCINE 5,000 UNITS/ML VIAL SUBCUT SCH ×2 (08:25→21:40)
[2021-11-28] MEDS: IRON SUCROSE COMPLEX 200 MG in NS 100 ML IV SCH (16:35)
[2021-11-28] MEDS: ATORVASTATIN 20 MG TABLET GT SCH (17:49)
[2021-11-28] MEDS: INSULIN GLARGINE 100 UNITS/ML 10 ML VIAL SUBCUT SCH (21:46)
[2021-11-29] MEDS: ALBUTEROL SULFATE 0.083% 2.5 MG/3 ML VIAL.NEB INH SCH ×6 (05:30→23:46)
[2021-11-29] MEDS: IPRATROPIUM BROM 0.5 MG/2.5 ML VIAL.NEB (ATROVENT) INH SCH ×6 (05:30→23:46)
[2021-11-29 08:00] VITALS: BP_SYST 115
[2021-11-29] MEDS: MULTIVITAMINS TAB 1 TABLET PO SCH (09:44)
[2021-11-29] MEDS: ASCORBIC ACID 500 MG TABLET PO SCH ×2 (09:44→22:04)
[2021-11-29] MEDS: MIDODRINE HCL 5 MG TABLET (PROAMATINE) GT SCH ×3 (09:44→22:08)
[2021-11-29] MEDS: CHOLECALCIFEROL (VITAMIN D3) 2,000 UNIT TABLET PO SCH (09:44)
[2021-11-29] MEDS: DOCUSATE SODIUM 100 MG CAPSULE PO SCH (09:44)
[2021-11-29] MEDS: LACTULOSE 20 GM/30 ML UDC GT SCH ×3 (09:45→22:01)
[2021-11-29] MEDS: PANTOPRAZOLE SODIUM 40 MG/VIAL (PROTONIX) IVP SCH (09:45)
[2021-11-29] MEDS: HEPARIN SODIUM,PORCINE 5,000 UNITS/ML VIAL SUBCUT SCH ×2 (09:58→22:10)
[2021-11-29] MEDS: levETIRAcetam 1,000 MG IV BAG 100 ML IV SCH ×2 (10:00→22:01)
[2021-11-29] MEDS: FLUDROCORTISONE ACETATE 0.1 MG TABLET( FLORINEF) PO SCH (10:15)
[2021-11-29] MEDS: AMMONIUM LACTATE 226 GM LOTION TP SCH (10:50)
[2021-11-29] MEDS: BALSAM PERU/CASTOR OIL 56.7 GM OINT...G. TP SCH (10:50)
[2021-11-29 11:53] VITALS: BP_SYST 113
[2021-11-29 15:23] VITALS: BP_SYST 101
[2021-11-29] MEDS: ATORVASTATIN 20 MG TABLET GT SCH (18:00)
[2021-11-29] MEDS: INSULIN REGULAR, HUMAN 100 UNITS/ML, 10 ML VIAL (humuLIN R) SUBCUT PRN (18:00)
[2021-11-29 20:00] VITALS: BP_SYST 121
[2021-11-29] MEDS: INSULIN GLARGINE 100 UNITS/ML 10 ML VIAL SUBCUT SCH (22:03)
[2021-11-29 23:00] VITALS: BP_SYST 104
[2021-11-30 00:18] VITALS: BP_SYST 104
[2021-11-30] MEDS: INSULIN REGULAR, HUMAN 100 UNITS/ML, 10 ML VIAL (humuLIN R) SUBCUT PRN (01:19)
[2021-11-30] MEDS: AMMONIUM LACTATE 226 GM LOTION TP SCH ×2 (01:21→09:03)
[2021-11-30] MEDS: ALBUTEROL SULFATE 0.083% 2.5 MG/3 ML VIAL.NEB INH SCH ×3 (05:23→15:45)
[2021-11-30] MEDS: IPRATROPIUM BROM 0.5 MG/2.5 ML VIAL.NEB (ATROVENT) INH SCH ×3 (05:23→15:45)
[2021-11-30] MEDS: LACTULOSE 20 GM/30 ML UDC GT SCH ×2 (09:00→14:57)
[2021-11-30] MEDS: DOCUSATE SODIUM 100 MG CAPSULE PO SCH (09:00)
[2021-11-30] MEDS: MULTIVITAMINS TAB 1 TABLET PO SCH (09:01)
[2021-11-30] MEDS: FLUDROCORTISONE ACETATE 0.1 MG TABLET( FLORINEF) PO SCH (09:02)
[2021-11-30] MEDS: PANTOPRAZOLE SODIUM 40 MG/VIAL (PROTONIX) IVP SCH (09:02)
[2021-11-30] MEDS: MIDODRINE HCL 5 MG TABLET (PROAMATINE) GT SCH ×2 (09:02→16:44)
[2021-11-30] MEDS: CHOLECALCIFEROL (VITAMIN D3) 2,000 UNIT TABLET PO SCH (09:02)
[2021-11-30] MEDS: ASCORBIC ACID 500 MG TABLET PO SCH (09:02)
[2021-11-30] MEDS: BALSAM PERU/CASTOR OIL 56.7 GM OINT...G. TP SCH (09:03)
[2021-11-30] MEDS: HEPARIN SODIUM,PORCINE 5,000 UNITS/ML VIAL SUBCUT SCH (09:05)
[2021-11-30] MEDS: levETIRAcetam 1,000 MG IV BAG 100 ML IV SCH (09:09)
[2021-11-30 10:18] LABS: BASOPHILS # (AUTO) 0.1 K/uL (0.0-0.2); BASOPHILS % (AUTO) 0.7 % (0.0-2.0); EOSINOPHILS # (AUTO) 0.6 K/uL (0.0-0.4); EOSINOPHILS % (AUTO) 5.7 % (0.0-4.0); HEMATOCRIT 26.7 % (36-54); HEMOGLOBIN 8.9 g/dL (14.0-18.0); LYMPHOCYTES # (AUTO) 1.2 K/uL (1.0-5.5); LYMPHOCYTES % (AUTO) 11.1 % (20.5-51.5); MEAN CORPUSCULAR HEMOGLOBIN 32 pg (27-31); MEAN CORPUSCULAR HGB CONC 33 % (32-36); MEAN CORPUSCULAR VOLUME 96 fL (79.0-98.0); MONOCYTES # (AUTO) 1.8 K/uL (0.0-1.0); MONOCYTES % (AUTO) 16.5 % (1.7-9.3); NEUTROPHILS # (AUTO) 7.1 K/uL (1.8-7.7); PLATELET COUNT (AUTO) 115 K/uL (130-430); RED BLOOD CELL COUNT(AUTO) 2.78 MIL/uL (4.2-6.2); WHITE BLOOD COUNT (AUTO) 10.7 K/uL (4.8-10.8)
[2021-11-30 10:54] VITALS: BP_SYST 88
[2021-11-30 11:28] VITALS: BP_SYST 93
[2021-11-30] MEDS ORDERED: ASCORBIC ACID 500 MG TABLET GT SCH (13:20)
[2021-11-30] MEDS ORDERED: CHOLECALCIFEROL (VITAMIN D3) 2,000 UNIT TABLET GT SCH (13:20)
[2021-11-30] MEDS ORDERED: FLUDROCORTISONE ACETATE 0.1 MG TABLET( FLORINEF) GT SCH (13:22)
[2021-11-30] MEDS ORDERED: MULTIVITAMINS TAB 1 TABLET GT SCH (13:22)
[2021-11-30] MEDS ORDERED: LANSOPRAZOLE 30 MG CAPSULE.DR GT ONE (13:30)
[2021-11-30 16:03] VITALS: BP_SYST 108
[2021-11-30 16:28] LABS: ALBUMIN 2.5 g/dL (3.4-4.8); CREATININE 2.04 mg/dL (0.55-1.30); POTASSIUM 3.5 mmol/L (3.5-5.1); TOTAL BILIRUBIN 0.2 mg/dL (0.0-1.0)
[2021-11-30] MEDS ORDERED: EPOETIN ALFA 10,000 UNITS/ML VIAL SUBCUT SCH (17:00)
[2021-11-30] MEDS: ATORVASTATIN 20 MG TABLET GT SCH (17:10)
[2021-11-30 17:33] VITALS: BP_SYST 108
[2021-11-30] MEDS ORDERED: LevETIRAcetam 500 MG/5 ML UDC ORAL LIQUID GT SCH (21:00)
[2021-12-01] MEDS ORDERED: LANSOPRAZOLE 30 MG CAPSULE.DR GT SCH (07:00)
[2021-12-01] MEDS ORDERED: DOCUSATE SODIUM 100 MG/10 ML UDC GT SCH (09:00)
[2021-12-01] MEDS ORDERED: FERROUS SULFATE 300 MG/5 ML UDC GT SCH (17:00)
== END 2021-11-30 20:05 | DRG 870 ==
LOC: SED 16:03 → STU 18:40
PROVIDERS: ADMIT Preventive Medicine Preventive Medicine/Occupational Environmental Medicine; ATTEND Preventive Medicine Preventive Medicine/Occupational Environmental Medicine
PROC: 5A1955Z Respiratory Ventilation, Greater than 96 Consecutive Hours (ICD-10-PCS; principal; 2021-11-15)
PROC: 02HV33Z Insertion of Infusion Device into Superior Vena Cava, Percutaneous Approach (ICD-10-PCS; 2021-11-15)
PROC: 5A1D70Z Performance of Urinary Filtration, Intermittent, Less than 6 Hours Per Day (ICD-10-PCS; 2021-11-16)
PROC: 5A1D70Z Performance of Urinary Filtration, Intermittent, Less than 6 Hours Per Day (ICD-10-PCS; 2021-11-18)
PROC: 5A1D70Z Performance of Urinary Filtration, Intermittent, Less than 6 Hours Per Day (ICD-10-PCS; 2021-11-22)
PROC: 5A1D70Z Performance of Urinary Filtration, Intermittent, Less than 6 Hours Per Day (ICD-10-PCS; 2021-11-24)
PROC: 5A1D70Z Performance of Urinary Filtration, Intermittent, Less than 6 Hours Per Day (ICD-10-PCS; 2021-11-27)
PROC: 5A1D70Z Performance of Urinary Filtration, Intermittent, Less than 6 Hours Per Day (ICD-10-PCS; 2021-11-28)
PROC: 5A1D70Z Performance of Urinary Filtration, Intermittent, Less than 6 Hours Per Day (ICD-10-PCS; 2021-11-30)
DX: A40.9 Streptococcal sepsis, unspecified (principal); N18.6 End stage renal disease; J15.1 Pneumonia due to Pseudomonas; I50.23 Acute on chronic systolic (congestive) heart failure; J96.21 Acute and chronic respiratory failure with hypoxia; N17.9 Acute kidney failure, unspecified; Z99.11 Dependence on respirator [ventilator] status; N39.0 Urinary tract infection, site not specified; I13.2 Hypertensive heart and chronic kidney disease with heart failure and with stage 5 chronic kidney disease, or end stage renal disease; L03.115 Cellulitis of right lower limb; L03.116 Cellulitis of left lower limb; Z16.24 Resistance to multiple antibiotics; J94.2 Hemothorax; E46 Unspecified protein-calorie malnutrition; G93.49 Other encephalopathy; I24.8 Other forms of acute ischemic heart disease; Z16.12 Extended spectrum beta lactamase (ESBL) resistance; Z99.2 Dependence on renal dialysis; B96.20 Unspecified Escherichia coli [E. coli] as the cause of diseases classified elsewhere; D63.1 Anemia in chronic kidney disease; E11.22 Type 2 diabetes mellitus with diabetic chronic kidney disease; E11.65 Type 2 diabetes mellitus with hyperglycemia; E78.5 Hyperlipidemia, unspecified; E83.39 Other disorders of phosphorus metabolism; E83.42 Hypomagnesemia; E83.52 Hypercalcemia; E88.09 Other disorders of plasma-protein metabolism, not elsewhere classified; G40.909 Epilepsy, unspecified, not intractable, without status epilepticus; G47.30 Sleep apnea, unspecified; E66.01 Morbid (severe) obesity due to excess calories; Z60.2 Problems related to living alone; L21.9 Seborrheic dermatitis, unspecified; Z20.822 Contact with and (suspected) exposure to COVID-19; I95.89 Other hypotension; R13.10 Dysphagia, unspecified; Z74.01 Bed confinement status; Z79.52 Long term (current) use of systemic steroids; Z86.73 Personal history of transient ischemic attack (TIA), and cerebral infarction without residual deficits; Z86.16 Personal history of COVID-19; Z93.0 Tracheostomy status; Z93.1 Gastrostomy status; Z88.8 Allergy status to other drugs, medicaments and biological substances; Z79.4 Long term (current) use of insulin; Z79.899 Other long term (current) drug therapy; Z68.34 Body mass index [BMI] 34.0-34.9, adult
CPT/HCPCS: 36415; 36600; 71045; 71250-TC; 76376; 80048; 80053; 82728; 82803-TC; 82962; 83540; 83550; 83735; 83880; 84100; 84484; 85007; 85025; 85027; 85651-TC; 86140; 87070-TC; 87081; 87205-TC; 93005; 93971; 94003; 94640; 94760; 99285; C9113; G0378; J0885; J1644; J1756; J1815; J1940; J1953; J7050; J7613; Q5106; U0003